=== PATIENT | female | born 1960 | race Caucasian/White ===

== ENCOUNTER 2020-03-31 09:52 | Outpatient (CLI) | payer OTHER, SELFPAY ==
--- NOTE | 2020-03-31 09:00 | DI.RAD_ITS ---
EXAM: XR KNEE RT 3V AP,LAT,MAYR CLINICAL HISTORY: pain TECHNIQUE: 2D digital imaging was performed. COMPARISON: No exams were available for comparison FINDINGS: The joint spaces are well maintained. There is mild periarticular spurring throughout. Chondrocalci nosis is faintly visualized. No joint effusion is seen. IMPRESSION: Mild degenerative changes.
== END 2020-03-31 10:12 ==
PROVIDERS: Visit Provider Orthopaedic Surgery
DX: M17.12 Unilateral primary osteoarthritis, left knee (principal)
CPT/HCPCS: 73562

== ENCOUNTER 2022-02-20 14:19 | Outpatient (CLI) | payer BC, SELFPAY ==
--- NOTE | 2022-02-20 13:15 | DI.RAD_ITS ---
Exam(s) XR KNEE LT 3V AP,LAT,MARY EXAM: XR KNEE LT 3V AP,LAT,MARY CLINICAL HISTORY: left knee pain, medial. TECHNIQUE: 2D digital imaging was performed. COMPARISON: CR XR KNEE RT 3V AP,LAT,MARY from 03/31/2020 FINDINGS: 3 views No evidence fracture. Small amount of increased joint fluid. Moderate degenerative changes in media l and lateral compartment.. IMPRESSION: Some changes. No fracture prominent joint DATA REPOSITORY: RADIATION DOSE DELIVERED:
== END 2022-02-20 14:20 | disposition home or self-care (01) ==
LOC: DIORS 14:19
PROVIDERS: Visit Provider Student in an Organized Health Care Education/Training Program
DX: M25.562 Pain in left knee (principal); M25.462 Effusion, left knee; M17.12 Unilateral primary osteoarthritis, left knee
CPT/HCPCS: 73562